=== PATIENT | female | born 1970 | race Two or more races ===

== ENCOUNTER 2017-06-11 03:40 | Emergency (ER) | payer MEDICAID ==
[~2017-06-11] VITALS: Ht 170.2 cm; Wt 132.2 kg
[2017-06-11] MEDS ORDERED: LORazepam 2 mg/ml vial IM ONE (04:10)
[2017-06-11 04:44] LABS: URINE AMPHETAMINE SCREEN POSITIVE (Neg); URINE BARBITUATE SCREEN NEGATIVE (Neg); URINE BENZODIAZEPINES SCREEN NEGATIVE (Neg); URINE CANNABINOID SCREEN NEGATIVE (Neg); URINE COCAINE SCREEN NEGATIVE (Neg); URINE METHADONE SCREEN NEGATIVE (Neg); URINE OPIATE SCREEN NEGATIVE (Neg); URINE PHENCYCLIDINE SCREEN NEGATIVE (Neg)
[2017-06-11 05:47] VITALS: BP 144/82
== END 2017-06-11 06:21 | disposition home or self-care (01) ==
LOC: ER 03:41
DX: F41.9 Anxiety disorder, unspecified (principal); Z90.710 Acquired absence of both cervix and uterus
CPT/HCPCS: 80305; 93005; 96372; 99285; J2060

== ENCOUNTER → 2020-08-21 | Outpatient (CLI) | payer MEDICAID | END | disposition home or self-care (01) | LOC: RAD 15:51 | PROVIDERS: ATTEND Nurse Practitioner Family | DX: R94.31 Abnormal electrocardiogram [ECG] [EKG] (principal); E66.01 Morbid (severe) obesity due to excess calories | CPT/HCPCS: 93005 ==

== ENCOUNTER 2020-10-21 07:30 | Day surgery (SDC) | payer MEDICAID ==
[~2020-10-21] VITALS: Ht 170.2 cm; Wt 139.1 kg
[2020-10-21] MEDS ORDERED: FURO-149 PO (07:43)
[2020-10-21] MEDS ORDERED: FOLI-62 PO (07:43)
[2020-10-21 07:44] VITALS: BP 135/81
[2020-10-21] MEDS ORDERED: OMEG1CAP46 PO (07:44)
[2020-10-21] MEDS ORDERED: fentaNYL/PF 50MCG/1 ML 2ML syringe ONE (07:47)
[2020-10-21] MEDS ORDERED: MIDAZolam 1 MG/ML 5ML VIAL ONE (07:47)
[2020-10-21 09:05] VITALS: BP 129/84
[2020-10-21 09:15] VITALS: BP 131/85
[2020-10-21 09:25] VITALS: BP 127/70
[2020-10-21 09:35] VITALS: BP 117/77
== END 2020-10-21 09:40 | disposition home or self-care (01) ==
LOC: GI LAB 07:30
PROVIDERS: ATTEND Specialist
DX: Z12.11 Encounter for screening for malignant neoplasm of colon (principal); K63.5 Polyp of colon; K64.8 Other hemorrhoids; Z79.899 Other long term (current) drug therapy
CPT/HCPCS: 45380; 99152; 99153; J2250; J3010; J7040; Z7512; A4620

== ENCOUNTER 2022-03-28 06:21 | Inpatient (IN) | payer MEDICAID ==
[~2022-03-28] VITALS: Ht 170.2 cm; Wt 115.9 kg
[~2022-03-28 06:21] MED LIST: FOLI-62 PO; FURO-149 PO; OMEG1CAP46 PO
[2022-03-28 08:24] LABS: BASOPHILS % (AUTO) 0.3 % (0-1); EOSINOPHILS % (AUTO) 0.3 % (0-6); HEMATOCRIT 40.7 % (35.0-45.0); HEMOGLOBIN 13.2 g/dl (12.0-16.0); LYMPHOCYTES # (AUTO) 1.2 X10'3 (1.1-4.8); LYMPHOCYTES % (AUTO) 14.1 % (21-51); MEAN CORPUSCULAR HEMOGLOBIN 28.1 PG (27.0-31.0); MEAN CORPUSCULAR HGB CONC 32.6 g/dL (33.0-36.5); MEAN CORPUSCULAR VOLUME 86.4 FL (78-98); MEAN PLATELET VOLUME 9.5 FL (7.4-10.4); MONOCYTES # (AUTO) 0.5 X10'3 (0-0.9); MONOCYTES % (AUTO) 5.4 % (2-12); NEUTROPHILS # (AUTO) 6.8 X10'3 (1.8-7.7); NEUTROPHILS % (AUTO) 79.9 % (42-75); PLATELET COUNT 203 X10'3 (140-440); RED CELL DISTRIBUTION WIDTH 13.4 % (11.5-14.5); WHITE BLOOD COUNT 8.5 X10'3 (4.5-11.0)
[2022-03-28 08:34] LABS: ALANINE AMINOTRANSFERASE 23 U/L (12-78); ALBUMIN 3.6 G/DL (3.4-5.0); ALBUMIN/GLOBULIN RATIO 0.9 (1.1-1.5); ALKALINE PHOSPHATASE 78 IU/L (46-116); ANION GAP 10 (8-16); ASPARTATE AMINO TRANSFERASE 28 U/L (10-37); BILIRUBIN,TOTAL 0.3 MG/DL (0.1-1.0); BLOOD UREA NITROGEN 10 MG/DL (7-18); BUN/CREATININE RATIO 17.2 (6.6-38.0); CALCIUM 8.9 MG/DL (8.5-10.1); CHLORIDE 103 MMOL/L (99-107); CREATININE 0.58 MG/DL (0.40-0.90); GLUCOSE 112 MG/DL (70-104); LIPASE < 50 U/L (73-393); POTASSIUM 3.8 MMOL/L (3.5-5.1); SODIUM 136 MMOL/L (135-145); TOTAL CARBON DIOXIDE 22.7 MMOL/L (24-32); TOTAL PROTEIN 7.5 G/DL (6.4-8.2); eGFR > 90 ML/MIN
[2022-03-28] MEDS ORDERED: ringers solution, lactated 500ml IV solution IV ONE (09:05)
[2022-03-28] MEDS ORDERED: morphine 4 MG/ML inj SYRINge IV ONE ×2 (09:05→13:20)
[2022-03-28] MEDS ORDERED: ondansetron/PF 4mg/2ml inj IV ONE ×3 (09:05→13:20)
[2022-03-28] MEDS ORDERED: mag hydrox/Alum hydrox/simeth 30ml oral suspension PO ONE (09:10)
[2022-03-28] MEDS ORDERED: famotidine/PF 10 mg/ml inj IV ONE (09:10)
[2022-03-28] MEDS ORDERED: iohexol 300mg/ml 100ml inj. ONE (09:33)
--- NOTE | 2022-03-28 09:33 | NUR ---
MEDICATED THE PT ,SIGNIFICANT OTHER AT BEDSIDE.
[2022-03-28 09:52] LABS: URINE HCG NEGATIVE (NEG)
[2022-03-28 10:01] LABS: CLARITY,URINE SLIGHTLY CLOUDY (Clear); COLOR,URINE YELLOW (Yellow); GLUCOSE, URINE NEGATIVE (Neg); KETONES,URINE TRACE mg/dl (Neg); LEUKOCYTE ESTERASE ,URINE NEGATIVE (Neg); NITRITES, URINE NEGATIVE (Neg); OCCULT BLOOD,URINE NEGATIVE (Neg); PROTEIN,URINE NEGATIVE (Neg); UROBILINOGEN,URINE 0.2 E.U/dL (0.2-1.0)
[2022-03-28 10:03] LABS: UA COLLECTION TYPE CLN CATCH MIDSTREAM
[2022-03-28 10:07] LABS: AMORPHOUS PHOSPHATES 2+
[2022-03-28 10:08] LABS: BACTERIA,URINE NONE SEEN /HPF (Neg); MUCUS STRANDS NONE SEEN /LPF (Neg); RBC,URINE NONE SEEN /HPF (0-2); SQUAMOUS EPITHELIAL CELL,UR FEW /LPF (FEW); WBC,URINE 0-4 /HPF (0-4)
[2022-03-28] MEDS ORDERED: acetaminophen 325mg tablet PO ONE (11:20)
--- NOTE | 2022-03-28 11:38 | NUR ---
pt had episode of vomiting after taking tylenol. provider Dr Woods was notified and ordered 4 mg of zofran IV and 500 cc bolus of NS.
[2022-03-28] MEDS ORDERED: normal saline 1000ml 1,000 ML IV ONE (11:40)
[2022-03-28 12:19] LABS: BASOPHILS % (AUTO) 0.2 % (0-1); EOSINOPHILS % (AUTO) 0 % (0-6); HEMATOCRIT 39.7 % (35.0-45.0); LYMPHOCYTES # (AUTO) 0.6 X10'3 (1.1-4.8); LYMPHOCYTES % (AUTO) 6.1 % (21-51); MEAN CORPUSCULAR HEMOGLOBIN 28.1 PG (27.0-31.0); MEAN CORPUSCULAR HGB CONC 32.7 g/dL (33.0-36.5); MEAN CORPUSCULAR VOLUME 85.8 FL (78-98); MEAN PLATELET VOLUME 9.1 FL (7.4-10.4); MONOCYTES # (AUTO) 0.5 X10'3 (0-0.9); MONOCYTES % (AUTO) 4.7 % (2-12); NEUTROPHILS # (AUTO) 9.5 X10'3 (1.8-7.7); PLATELET COUNT 228 X10'3 (140-440); RED BLOOD COUNT 4.62 X10'6 (4.20-5.60); RED CELL DISTRIBUTION WIDTH 13.2 % (11.5-14.5); WHITE BLOOD COUNT 10.6 X10'3 (4.5-11.0)
[2022-03-28 12:36] LABS: ALANINE AMINOTRANSFERASE 23 U/L (12-78); ALBUMIN 3.5 G/DL (3.4-5.0); ALKALINE PHOSPHATASE 81 IU/L (46-116); ANION GAP 9 (8-16); ASPARTATE AMINO TRANSFERASE 34 U/L (10-37); BILIRUBIN,TOTAL 0.4 MG/DL (0.1-1.0); BLOOD UREA NITROGEN 7 MG/DL (7-18); BUN/CREATININE RATIO 12.3 (6.6-38.0); CALCIUM 8.9 MG/DL (8.5-10.1); CHLORIDE 103 MMOL/L (99-107); CREATININE 0.57 MG/DL (0.40-0.90); GLUCOSE 117 MG/DL (70-104); POTASSIUM 3.6 MMOL/L (3.5-5.1); SODIUM 138 MMOL/L (135-145); TOTAL CARBON DIOXIDE 26.1 MMOL/L (24-32); TOTAL PROTEIN 7.1 G/DL (6.4-8.2); eGFR > 90 ML/MIN
[2022-03-28] MEDS ORDERED: magnesium Cl slow-release 64mg tablet PO PRN (14:10)
[2022-03-28] MEDS ORDERED: magnesium hydroxide 30ml (MOM) UD suspension PO PRN (14:10)
[2022-03-28] MEDS ORDERED: mag hydrox/Alum hydrox/simeth 30ml oral suspension PO PRN (14:10)
[2022-03-28] MEDS ORDERED: potassium Cl 20 mEq SR tablet PO PRN (14:10)
[2022-03-28] MEDS ORDERED: acetaminophen 325mg tablet PO PRN (14:10)
[2022-03-28] MEDS ORDERED: pantoprazole 40mg IV 80 MG in normal saline 100ml IV soln 100 ML IV ONE (14:10)
[2022-03-28] MEDS ORDERED: ondansetron/PF 4mg/2ml inj IV PRN (14:10)
[2022-03-28] MEDS ORDERED: metoclopramide 5 mg/ml inj IV PRN (14:10)
[2022-03-28] MEDS ORDERED: potassium Cl 40MEQ/1/2NS 520ml 520 ML IV PRN (14:10)
[2022-03-28] MEDS ORDERED: morphine 2 MG/ML inj. syringe IV PRN ×2 (14:10)
[2022-03-28] MEDS ORDERED: magnesium 4gm in 100ml NS 100 ML IV PRN (14:10)
--- NOTE | 2022-03-28 14:30 | NUR ---
DR SANCHEZ AT BEDSIDE.
[2022-03-28] MEDS ORDERED: CALC500T63 PO (14:40)
[2022-03-28] MEDS: normal saline 1000ml 1,000 ML IV SCH (14:48)
--- NOTE | 2022-03-28 19:01 | NUR ---
Patient sleeping/resting, no needs expressed at this time. VS updated.
[2022-03-28] MEDS: K and/or MAG REPLACEMENT MC SCH (19:52)
[2022-03-28] MEDS: docusate sod 100mg capsule PO SCH (20:00)
--- NOTE | 2022-03-28 20:26 | NUR ---
Report called to Vicenta on surg who kindly accepts report at this time. patient is cleared for transport to receiving unit.
[2022-03-28 21:00] VITALS: BP 158/85
[2022-03-29] VITALS (16 sets, daily range): BP systolic 108–139; BP diastolic 59–87
[2022-03-29] MEDS: normal saline 1000ml 1,000 ML IV SCH ×3 (01:08→21:08)
[2022-03-29 06:14] LABS: BASOPHILS % (AUTO) 0.1 % (0-1); EOSINOPHILS % (AUTO) 0 % (0-6); LYMPHOCYTES % (AUTO) 7.5 % (21-51); MEAN CORPUSCULAR HEMOGLOBIN 28.2 PG (27.0-31.0); MEAN CORPUSCULAR HGB CONC 33.3 g/dL (33.0-36.5); MEAN CORPUSCULAR VOLUME 84.8 FL (78-98); MEAN PLATELET VOLUME 9.5 FL (7.4-10.4); MONOCYTES # (AUTO) 1.2 X10'3 (0-0.9); MONOCYTES % (AUTO) 9.1 % (2-12); NEUTROPHILS % (AUTO) 83.3 % (42-75); PLATELET COUNT 210 X10'3 (140-440); RED CELL DISTRIBUTION WIDTH 13.2 % (11.5-14.5); WHITE BLOOD COUNT 13.2 X10'3 (4.5-11.0)
[2022-03-29 06:54] LABS: ALANINE AMINOTRANSFERASE 91 U/L (12-78); ALBUMIN 3.1 G/DL (3.4-5.0); ALBUMIN/GLOBULIN RATIO 0.8 (1.1-1.5); ALKALINE PHOSPHATASE 95 IU/L (46-116); ANION GAP 9 (8-16); ASPARTATE AMINO TRANSFERASE 89 U/L (10-37); BILIRUBIN,TOTAL 0.6 MG/DL (0.1-1.0); BLOOD UREA NITROGEN 6 MG/DL (7-18); BUN/CREATININE RATIO 10.5 (6.6-38.0); CALCIUM 8.2 MG/DL (8.5-10.1); CHLORIDE 102 MMOL/L (99-107); CREATININE 0.57 MG/DL (0.40-0.90); GLUCOSE 129 MG/DL (70-104); MAGNESIUM 1.6 MG/DL (1.5-2.4); POTASSIUM 3.2 MMOL/L (3.5-5.1); SODIUM 137 MMOL/L (135-145); TOTAL CARBON DIOXIDE 26.1 MMOL/L (24-32); TOTAL PROTEIN 6.9 G/DL (6.4-8.2); eGFR > 90 ML/MIN
--- NOTE | 2022-03-29 06:55 | NUR ---
Patient in room [facility]. I have received report from Vicenta and had the opportunity to ask questions and assume patient care.
[2022-03-29] MEDS: K and/or MAG REPLACEMENT MC SCH ×2 (08:00→20:00)
[2022-03-29] MEDS: docusate sod 100mg capsule PO SCH ×2 (08:00→21:08)
[2022-03-29] MEDS: potassium Cl 20 mEq SR tablet PO PRN ×3 (08:55→21:08)
[2022-03-29] MEDS: CefTRIAXone/D5W-Rocephin 1gm 50 ML IV SCH (10:59)
[2022-03-29] MEDS ORDERED: morphine 2 MG/ML inj. syringe IV PRN (13:40)
[2022-03-29] MEDS ORDERED: labetalol 20mg/4ml (5mg/ml) syringe IV PRN (13:40)
[2022-03-29] MEDS ORDERED: ondansetron/PF 4mg/2ml inj IV PRN (13:40)
[2022-03-29] MEDS ORDERED: ringers solution, lacted 1,000 ML IV SCH (13:40)
[2022-03-29] MEDS ORDERED: fentaNYL/PF 50MCG/1 ML 2ML syringe IV PRN ×2 (13:40)
[2022-03-29] MEDS ORDERED: morphine 4 MG/ML inj SYRINge IV PRN (13:40)
[2022-03-29] MEDS ORDERED: hydrALAZINE 20mg/ml inj. IV PRN (13:40)
[2022-03-29] MEDS ORDERED: INDOCYANINE GREEN 25 MG/10 ML VIAL IV STA (14:28)
[2022-03-29] MEDS ORDERED: BUPIVAcaine 0.5% inj/PF 30 ML ONE ×2 (15:15→18:31)
[2022-03-29] MEDS ORDERED: LIDOcaine 1% 30ml preserv. free vial ONE (15:15)
[2022-03-29] MEDS ORDERED: scopolamine 1mg/72 hr patch TD ONE (16:15)
[2022-03-29] MEDS ORDERED: sevoflurane 250ml liquid IH ONE (16:17)
[2022-03-29] MEDS ORDERED: dexamethasone sod phosphate 4mg/ml inj. ONE (16:17)
[2022-03-29] MEDS ORDERED: rocuronium 10mg/ml inj IV ONE (16:19)
[2022-03-29] MEDS ORDERED: propofol inj 20 ML IV ONE (16:19)
[2022-03-29] MEDS ORDERED: fentaNYL/PF 50MCG/1 ML 2ML syringe ONE (16:20)
[2022-03-29] MEDS ORDERED: ondansetron/PF 4mg/2ml inj ONE (16:20)
[2022-03-29] MEDS ORDERED: midazolam 1 mg/ML 2ml injection ONE (16:21)
[2022-03-29] MEDS ORDERED: ceFAZolin 1000mg inj ONE ×3 (16:35→16:36)
[2022-03-29] MEDS ORDERED: BUPIVAcaine 0.5% inj/PF 30 ml vial IJ ONE (16:52)
[2022-03-29] MEDS ORDERED: LIDOcaine 1% 30ml preserv. free vial IJ ONE (16:57)
[2022-03-29] MEDS ORDERED: albumin (Human) 5% 250ml 250 ML IV ONE (18:09)
--- NOTE | 2022-03-29 18:15 | NUR ---
Patient in room [facility] 356. I have received report from SG Rasmussen and had the opportunity to ask questions and assume patient care. Pt in surgery at this time.
[2022-03-29] MEDS ORDERED: sugammadex 200mg/2ml injection IV ONE (18:17)
[2022-03-29] MEDS ORDERED: BUPIVACAINE liposomal/PF 13.3 MG/ML vial IM ONE ×2 (18:31→18:34)
--- NOTE | 2022-03-29 19:15 | NUR ---
Received from OR via BED, accompanied by Anesthesiologist and report given by Anesthesiologist. PATIENT WAKING UP, NO S/S OF PAIN, V/S WNL, SCD ON, 20G TO RUE, 4 ABDOMEN LAP SITE CDI AND PRINCE WITH MINIMAL OUTPUT, NO S/S OF COMPLICATIONS.
[2022-03-29] MEDS ORDERED: oxyCODONE/APAP 5-325mg tablet PO PRN (19:40)
[2022-03-29] MEDS ORDERED: naloxone 0.4 mg/ml inj IV PRN (19:40)
--- NOTE | 2022-03-29 19:50 | NUR ---
Patient in room [facility] 356. I have received report from SG Mills and had the opportunity to ask questions and assume patient care.
--- NOTE | 2022-03-29 20:05 | NUR ---
PATIENT A&OX4, PATIENT DENIES PAIN, V/S WNL, SCD ON, 20G TO RUE, 4 ABDOMEN LAP SITE CDI AND PRINCE WITH MINIMAL OUTPUT, NO S/S OF COMPLICATIONS. PATIENT HAS MET ALL CRITERIA FOR TRANSFER TO THE SURGICAL FLOOR. VSS. DRESSINGS INTACT. BED LOW, CALL LIGHT PRESENT AND 2 RAILS UP. RN PRESENT TO ACCEPT CARE OF PATIENT AND REPORT HAS BEEN CALLED. ALL QUESTIONS ANSWERED TO ACCEPTING RN.
[2022-03-30] VITALS (8 sets, daily range): BP systolic 102–122; BP diastolic 54–70
[2022-03-30] MEDS: normal saline 1000ml 1,000 ML IV SCH ×3 (06:10→19:21)
[2022-03-30 06:20] LABS: BASOPHILS % (AUTO) 0.3 % (0-1); EOSINOPHILS % (AUTO) 0.1 % (0-6); HEMOGLOBIN 11.6 g/dl (12.0-16.0); LYMPHOCYTES # (AUTO) 0.7 X10'3 (1.1-4.8); LYMPHOCYTES % (AUTO) 4.9 % (21-51); MEAN CORPUSCULAR HEMOGLOBIN 28.4 PG (27.0-31.0); MEAN CORPUSCULAR HGB CONC 33.1 g/dL (33.0-36.5); MEAN CORPUSCULAR VOLUME 85.8 FL (78-98); MEAN PLATELET VOLUME 9.3 FL (7.4-10.4); MONOCYTES # (AUTO) 0.9 X10'3 (0-0.9); NEUTROPHILS # (AUTO) 11.7 X10'3 (1.8-7.7); NEUTROPHILS % (AUTO) 87.7 % (42-75); PLATELET COUNT 204 X10'3 (140-440); RED BLOOD COUNT 4.08 X10'6 (4.20-5.60); RED CELL DISTRIBUTION WIDTH 13.6 % (11.5-14.5); WHITE BLOOD COUNT 13.3 X10'3 (4.5-11.0)
--- NOTE | 2022-03-30 06:27 | NUR ---
Problems reprioritized. Patient report given, questions answered & plan of care reviewed with SG Mchugh.
[2022-03-30 06:53] LABS: ALANINE AMINOTRANSFERASE 243 U/L (12-78); ALBUMIN 2.5 G/DL (3.4-5.0); ALBUMIN/GLOBULIN RATIO 0.7 (1.1-1.5); ALKALINE PHOSPHATASE 165 IU/L (46-116); ANION GAP 8 (8-16); ASPARTATE AMINO TRANSFERASE 138 U/L (10-37); BILIRUBIN,TOTAL 0.9 MG/DL (0.1-1.0); BLOOD UREA NITROGEN 9 MG/DL (7-18); BUN/CREATININE RATIO 14.3 (6.6-38.0); CALCIUM 8.2 MG/DL (8.5-10.1); CHLORIDE 106 MMOL/L (99-107); CREATININE 0.63 MG/DL (0.40-0.90); GLUCOSE 133 MG/DL (70-104); MAGNESIUM 1.7 MG/DL (1.5-2.4); POTASSIUM 3.9 MMOL/L (3.5-5.1); SODIUM 140 MMOL/L (135-145); TOTAL CARBON DIOXIDE 26.4 MMOL/L (24-32); TOTAL PROTEIN 6.2 G/DL (6.4-8.2); eGFR > 90 ML/MIN
[2022-03-30] MEDS: pantoprazole 40mg Tablet.DR PO SCH (08:00)
[2022-03-30] MEDS: K and/or MAG REPLACEMENT MC SCH ×2 (08:00→19:56)
[2022-03-30] MEDS: docusate sod 100mg capsule PO SCH (08:00)
[2022-03-30] MEDS: CefTRIAXone/D5W-Rocephin 1gm 50 ML IV SCH (08:01)
--- NOTE | 2022-03-30 12:21 | NUR ---
Report received from Teresa student nurse. Patient resting comfortably. Primary RN made aware.
--- NOTE | 2022-03-30 18:56 | NUR ---
Physical assessment reviewed Angel MORROW Reviewed. Addendum: 03/30/22 at 1857 by Lolita Reed RN Amended: Links added.
--- NOTE | 2022-03-30 18:56 | NUR ---
End of shift report given to Helen BETTENCOURT.
--- NOTE | 2022-03-30 19:06 | NUR ---
Patient in room [facility]. I have received report from PRIYANKA Vargas and had the opportunity to ask questions and assume patient care.
[2022-03-31 06:00] VITALS: BP 115/69
[2022-03-31 06:22] LABS: BASOPHILS % (AUTO) 0.3 % (0-1); EOSINOPHILS # (AUTO) 0.3 X10'3 (0-0.9); EOSINOPHILS % (AUTO) 3.4 % (0-6); HEMATOCRIT 34.4 % (35.0-45.0); HEMOGLOBIN 11.2 g/dl (12.0-16.0); LYMPHOCYTES # (AUTO) 1.2 X10'3 (1.1-4.8); LYMPHOCYTES % (AUTO) 13.5 % (21-51); MEAN CORPUSCULAR HEMOGLOBIN 28.2 PG (27.0-31.0); MEAN CORPUSCULAR HGB CONC 32.7 g/dL (33.0-36.5); MEAN CORPUSCULAR VOLUME 86.2 FL (78-98); MEAN PLATELET VOLUME 9.6 FL (7.4-10.4); MONOCYTES # (AUTO) 0.7 X10'3 (0-0.9); MONOCYTES % (AUTO) 7.8 % (2-12); NEUTROPHILS # (AUTO) 6.9 X10'3 (1.8-7.7); PLATELET COUNT 197 X10'3 (140-440); RED BLOOD COUNT 3.99 X10'6 (4.20-5.60); RED CELL DISTRIBUTION WIDTH 13.8 % (11.5-14.5); WHITE BLOOD COUNT 9.2 X10'3 (4.5-11.0)
--- NOTE | 2022-03-31 06:35 | NUR ---
Problems reprioritized. Patient report given, questions answered & plan of care reviewed with PRIYANKA Vargas and SG Mchugh.
[2022-03-31 06:41] LABS: ALANINE AMINOTRANSFERASE 144 U/L (12-78); ALBUMIN 2.4 G/DL (3.4-5.0); ALBUMIN/GLOBULIN RATIO 0.7 (1.1-1.5); ALKALINE PHOSPHATASE 151 IU/L (46-116); ANION GAP 6 (8-16); ASPARTATE AMINO TRANSFERASE 49 U/L (10-37); BILIRUBIN,TOTAL 0.5 MG/DL (0.1-1.0); BLOOD UREA NITROGEN 10 MG/DL (7-18); BUN/CREATININE RATIO 17.2 (6.6-38.0); CALCIUM 8.3 MG/DL (8.5-10.1); CHLORIDE 109 MMOL/L (99-107); CREATININE 0.58 MG/DL (0.40-0.90); GLUCOSE 94 MG/DL (70-104); POTASSIUM 3.6 MMOL/L (3.5-5.1); SODIUM 140 MMOL/L (135-145); eGFR > 90 ML/MIN
--- NOTE | 2022-03-31 07:02 | NUR ---
Patient in room [facility] 356. I have received report from delta Frye and had the opportunity to ask questions and assume patient care.
[2022-03-31] MEDS: K and/or MAG REPLACEMENT MC SCH (08:00)
[2022-03-31] MEDS: CefTRIAXone/D5W-Rocephin 1gm 50 ML IV SCH (08:28)
[2022-03-31] MEDS: pantoprazole 40mg Tablet.DR PO SCH (09:13)
[2022-03-31 10:00] VITALS: BP 121/67
[2022-03-31] MEDS ORDERED: PANT40TA54 PO (10:00)
--- NOTE | 2022-03-31 12:45 | NUR ---
Patient discharged home. Accompanied by family. All medications reviewed. PRINCE drain care and dressing instructions understood by both patient and family. All discharge paperwork signed and in patient chart.
== END 2022-03-31 12:15 | disposition home or self-care (01) | DRG 263 ==
LOC: ER 06:21 → ED HOLD 14:08 → OBSVTOIN 14:08 → SUR 3N 20:39
PROVIDERS: ADMIT Family Medicine; ATTEND Family Medicine
PROC: BW211ZZ Computerized Tomography (CT Scan) of Abdomen and Pelvis using Low Osmolar Contrast (ICD-10-PCS; 2022-03-28)
PROC: BF532Z0 Other Imaging of Gallbladder and Bile Ducts using Fluorescing Agent, Intraoperative (ICD-10-PCS; 2022-03-29)
PROC: 8E0W4CZ Robotic Assisted Procedure of Trunk Region, Percutaneous Endoscopic Approach (ICD-10-PCS; 2022-03-29)
PROC: 0DNU4ZZ Release Omentum, Percutaneous Endoscopic Approach (ICD-10-PCS; 2022-03-29)
PROC: 0WQF4ZZ Repair Abdominal Wall, Percutaneous Endoscopic Approach (ICD-10-PCS; 2022-03-29)
PROC: 0DNW4ZZ Release Peritoneum, Percutaneous Endoscopic Approach (ICD-10-PCS; 2022-03-29)
PROC: 5A09357 Assistance with Respiratory Ventilation, Less than 24 Consecutive Hours, Continuous Positive Airway Pressure (ICD-10-PCS; 2022-03-29)
PROC: 0FT44ZZ Resection of Gallbladder, Percutaneous Endoscopic Approach (ICD-10-PCS; principal; 2022-03-29 16:17)
PROC: 5A09357 Assistance with Respiratory Ventilation, Less than 24 Consecutive Hours, Continuous Positive Airway Pressure (ICD-10-PCS; 2022-03-30)
DX: K80.00 Calculus of gallbladder with acute cholecystitis without obstruction (principal); K82.A1 Gangrene of gallbladder in cholecystitis; E66.01 Morbid (severe) obesity due to excess calories; G47.33 Obstructive sleep apnea (adult) (pediatric); R74.01 Elevation of levels of liver transaminase levels; E87.6 Hypokalemia; K43.2 Incisional hernia without obstruction or gangrene; K66.0 Peritoneal adhesions (postprocedural) (postinfection); Z90.710 Acquired absence of both cervix and uterus; Z98.84 Bariatric surgery status; Z68.41 Body mass index [BMI] 40.0-44.9, adult; Z79.899 Other long term (current) drug therapy
CPT/HCPCS: 36415; 74177; 76700; 80053; 81001; 81025; 82948; 83605; 83690; 83735; 85025; 87081; 93005; 96361; 96374; 96375; 96376; 99285; A4215; A4615; A4618; A7000; C9113; C9290; G0378; J0690; J0696; J1100; J2250; J2270; J2405; J2704; J3010; J3490; J7030; J7120; P9045; Q9967; S0020